=== PATIENT | female | born 1945 | race Hispanic/Latino ===

== ENCOUNTER 2021-02-07 05:53 | Observation (INO) | payer OTHER ==
[2021-02-01 13:16] LABS: BASOPHILS % (AUTO) 0.4 % (0.0-5.0); EOSINOPHILS % (AUTO) 2.4 % (0.0-8.0); HEMATOCRIT 44.5 % (36-48); LYMPHOCYTES % (AUTO) 26.9 % (21.0-51.0); MEAN CORPUSCULAR HEMOGLOBIN 28.5 pg (27.0-33.0); MEAN CORPUSCULAR HGB CONC 31.5 g/dL (32.0-36.0); MEAN CORPUSCULAR VOLUME 90.6 fL (79-99); MONOCYTES % (AUTO) 7.8 % (3.0-13.0); NEUTROPHILS % (AUTO) 62.1 % (40.0-77.0); PLATELET COUNT (AUTO) 190 K/uL (130-400); RED BLOOD CELL COUNT(AUTO) 4.91 MIL/uL (4.00-5.50); RED CELL DISTRIBUTION WIDTH 14.3 % (11.0-15.5); WHITE BLOOD COUNT (AUTO) 5.4 K/uL (4.8-10.8)
[2021-02-01 13:25] LABS: CREATININE 0.8 mg/dL (0.5-1.5); POTASSIUM 3.8 mmol/L (3.5-5.1)
[2021-02-01 13:27] LABS: INR 1.01 (0.85-1.15)
[2021-02-06 10:29] VITALS: BP 151/65
[~2021-02-07] VITALS: Ht 157.5 cm; Wt 86.5 kg
[2021-02-07] VITALS (25 sets, daily range): BP systolic 95–167; BP diastolic 47–92
[~2021-02-07 05:53] MED LIST: GABA300C PO; LEVO75TA10 PO; LISI1TAB32 PO
[2021-02-07] MEDS ORDERED: TRANEXAMIC ACID 1000MG/10ML ONE ×3 (06:49)
[2021-02-07] MEDS ORDERED: CLINDAMYCIN IVPB 600MG/50ML 50 ML IV ONE (07:00)
[2021-02-07] MEDS ORDERED: LIDOCAINE PF 100MG/5ML (2%) SYRINGE 5ML ONE ×2 (07:16→08:18)
[2021-02-07] MEDS ORDERED: SUCCINYLCHOLINE CHLORIDE 20 MG/ML 10 ML VIAL ONE ×2 (07:16→08:18)
[2021-02-07] MEDS ORDERED: ROCURONIUM 10MG/1ML SYR 10 MG/ML ML ONE (07:17)
[2021-02-07] MEDS ORDERED: NEOSTIGMINE 5MG/5ML SYR IV ONE (07:17)
[2021-02-07] MEDS ORDERED: GLYCOPYRROLATE 1 MG/5 ML SYRINGE ONE (07:17)
[2021-02-07] MEDS ORDERED: ONDANSETRON 4MG INJ ONE (07:17)
[2021-02-07] MEDS ORDERED: MIDAZOLAM HCL 1 MG/ML 2ML VIAL ONE (07:17)
[2021-02-07] MEDS ORDERED: FENTANYL CITRATE PF 50 MCG/1 ML 2ML VIAL ONE ×2 (07:17→09:01)
[2021-02-07] MEDS ORDERED: DEXAMETHASONE SOD PHOSPHATE 10MG/ML 1ML VIAL ONE (07:17)
[2021-02-07] MEDS ORDERED: PROPOFOL 10 MG/ML 20ML VIAL IV ONE (07:17)
[2021-02-07] MEDS: CLINDAMYCIN IVPB 600MG/50ML 50 ML IV SCH ×2 (07:30→07:54)
[2021-02-07] MEDS: LACTATED RINGERS 1000ML 1,000 ML IV SCH ×6 (07:31→14:39)
[2021-02-07] MEDS ORDERED: ROPIVACAINE 0.5% 5MG/ML 30ML IJ ONE (07:47)
[2021-02-07] MEDS ORDERED: METOPROLOL TARTRATE 1 MG/ML 5ML VIAL IV ONE (08:19)
[2021-02-07] MEDS ORDERED: TRANEXAMIC ACID 1000MG/10ML TP ONE ×3 (08:24)
[2021-02-07] MEDS ORDERED: LABETALOL 20MG VIAL IV ONE (08:37)
[2021-02-07] MEDS: ACETAMINOPHEN 500 MG TABLET PO SCH ×2 (09:30→17:30)
[2021-02-07] MEDS ORDERED: MORPHINE 4 MG SYG IVP PRN (09:30)
[2021-02-07] MEDS ORDERED: ONDANSETRON 4MG INJ IVP PRN (09:30)
[2021-02-07] MEDS ORDERED: HYDROCODONE/ACETAMINOPHEN 5/325 MG TAB PO PRN (09:30)
[2021-02-07] MEDS ORDERED: OXYCODONE HCL 5 MG TAB PO PRN (09:30)
[2021-02-07] MEDS: LEVOTHYROXINE 75 MCG TABLET PO SCH (09:41)
[2021-02-07] MEDS: LISINOPRIL 10 MG TABLET PO SCH (09:41)
[2021-02-07] MEDS: HYDROCHLOROTHIAZIDE 25 MG TABLET PO SCH (09:45)
[2021-02-07] MEDS: 0.9%NACL 1000ML 1,000 ML IV SCH ×2 (10:47→21:19)
[2021-02-07] MEDS: TRAMADOL HCL 50 MG TABLET PO SCH ×3 (12:00→23:12)
[2021-02-07] MEDS: CLINDAMYCIN IVPB 900MG/50ML 50 ML IVPB SCH ×2 (15:13→22:24)
[2021-02-07] MEDS ORDERED: GABAPENTIN 300 MG CAPSULE PO SCH (21:00)
[2021-02-07] MEDS: CELECOXIB 200 MG CAP PO SCH (21:18)
[2021-02-07] MEDS: FAMOTIDINE 20MG TAB PO SCH (21:18)
[2021-02-08] MEDS: ACETAMINOPHEN 500 MG TABLET PO SCH ×3 (01:30→17:39)
[2021-02-08 03:42] VITALS: BP 101/42
[2021-02-08 04:31] LABS: HEMATOCRIT 32.2 % (36-48); MEAN CORPUSCULAR HEMOGLOBIN 28.8 pg (27.0-33.0); MEAN CORPUSCULAR VOLUME 89.9 fL (79-99); RED BLOOD CELL COUNT(AUTO) 3.58 MIL/uL (4.00-5.50); RED CELL DISTRIBUTION WIDTH 14.5 % (11.0-15.5); WHITE BLOOD COUNT (AUTO) 7.1 K/uL (4.8-10.8)
[2021-02-08 04:48] LABS: POTASSIUM 3.3 mmol/L (3.5-5.1)
[2021-02-08] MEDS: 0.9%NACL 1000ML 1,000 ML IV SCH ×2 (05:30→08:48)
[2021-02-08] MEDS: LEVOTHYROXINE 75 MCG TABLET PO SCH (06:17)
[2021-02-08] MEDS: TRAMADOL HCL 50 MG TABLET PO SCH ×2 (06:17→13:21)
[2021-02-08 08:00] VITALS: BP 100/40
[2021-02-08] MEDS ORDERED: ROPIVICAINE 250MG+KETOROLAC 15MG+EPINEPHRINE 0.3+CLONIDINE 80 IV PRN ×5 (08:00)
[2021-02-08] MEDS: CELECOXIB 200 MG CAP PO SCH (08:45)
[2021-02-08] MEDS: FAMOTIDINE 20MG TAB PO SCH (08:45)
[2021-02-08] MEDS: HYDROCHLOROTHIAZIDE 25 MG TABLET PO SCH (09:00)
[2021-02-08] MEDS: LISINOPRIL 10 MG TABLET PO SCH (09:00)
[2021-02-08] MEDS ORDERED: POLYETHYLENE GLYCOL 3350 17 GM POWD.PACK PO SCH (09:00)
[2021-02-08 12:00] VITALS: BP 92/42
[2021-02-08 16:00] VITALS: BP 140/54
[2021-02-08] MEDS ORDERED: ENOXAPARIN SODIUM 30 MG/0.3 ML SQ SCH (16:00)
[2021-02-10] MEDS ORDERED: BISACODYL 10 MG SUPP.RECT RC PRN (09:30)
== END 2021-02-08 19:00 | disposition home health service (06) ==
LOC: DAH 05:53 → DAHIP 05:54 → DAH 05:54 → 4AH 09:49
PROVIDERS: ADMIT Orthopaedic Surgery; ATTEND Orthopaedic Surgery
DX: M17.11 Unilateral primary osteoarthritis, right knee (principal); Z20.822 Contact with and (suspected) exposure to COVID-19; I10 Essential (primary) hypertension; E03.9 Hypothyroidism, unspecified; Z79.01 Long term (current) use of anticoagulants
CPT/HCPCS: 27447; 36415 ×2; 73560; 80048 ×2; 85025; 85027; 85610; 85730; 87635; 87641; 88305; 88311; 93005; 96361 ×2; 96365; 96366; 96372; 97039 ×3; 97116 ×3; 97161; 97530 ×2; A4215; A4216; A4221; A4222; A4223 ×2; A4649 ×7; A4663; A6260; A9272; C1776; C9803; G0378 ×31; G8978; G8979; G8980; G8981; G8982; G8983; J0330 ×2; J1100; J1650; J2001 ×2; J2250; J2405; J2704; J2710; J2795; J3010 ×2; J3490 ×13; J7030; J7120

== ENCOUNTER → 2023-02-26 | Outpatient (CLI) | payer OTHER ==
[~2023-02-26] MED LIST changes: -LISI1TAB32 PO; +LISI1TAB49 PO
[2023-02-26 12:47] LABS: BASOPHILS % (AUTO) 0.6 % (0.0-5.0); EOSINOPHILS % (AUTO) 4.5 % (0.0-8.0); HEMATOCRIT 42.6 % (36-48); LYMPHOCYTES % (AUTO) 41.4 % (21.0-51.0); MEAN CORPUSCULAR HEMOGLOBIN 28.4 pg (27.0-33.0); MEAN CORPUSCULAR HGB CONC 31.7 g/dL (32.0-36.0); MEAN CORPUSCULAR VOLUME 89.5 fL (79-99); MONOCYTES % (AUTO) 8.1 % (3.0-13.0); NEUTROPHILS % (AUTO) 45.2 % (40.0-77.0); PLATELET COUNT (AUTO) 202 K/uL (130-400); RED BLOOD CELL COUNT(AUTO) 4.76 MIL/uL (4.00-5.50); RED CELL DISTRIBUTION WIDTH 14.1 % (11.0-15.5); WHITE BLOOD COUNT (AUTO) 4.7 K/uL (4.8-10.8)
[2023-02-26 12:58] LABS: CREATININE 1.1 mg/dL (0.5-1.5); POTASSIUM 4.1 mmol/L (3.5-5.1)
== END | disposition home or self-care (01) ==
LOC: LAB 10:31
PROVIDERS: ATTEND Internal Medicine Cardiovascular Disease
DX: I50.31 Acute diastolic (congestive) heart failure (principal)
CPT/HCPCS: 36415; 80048; 83880; 85025

== ENCOUNTER 2023-05-02 16:16 | Emergency (ER) | payer OTHER ==
[~2023-05-02] VITALS: Ht 160 cm; Wt 85.7 kg
[2023-05-02 17:29] LABS: ADD UA MICROSCOPIC YES; APPEARANCE,URINE TURBID (CLEAR); BILIRUBIN,URINE NEGATIVE (NEGATIVE); COLOR,URINE RED (YELLOW); GLUCOSE, URINE (UA) NEGATIVE (NEGATIVE); KETONES,URINE NEGATIVE (NEGATIVE); LEUKOCYTE ESTERASE ,URINE 500 Leu/uL (NEGATIVE); NITRATE,URINE NEGATIVE (NEGATIVE); OCCULT BLOOD,URINE LARGE (NEGATIVE); PROTEIN,URINE 100 mg/dL (NEGATIVE); UROBILINOGEN,URINE 0.2 mg/dL (0.2-1.0)
[2023-05-02 17:36] VITALS: BP 153/50; PULSE 78; RESP 18; O2SAT 98
[2023-05-02 17:52] LABS: BACTERIA,URINE FEW /HPF (None Seen); MUCUS,URINE RARE LPF (None Seen); NON-SQUAMOUS EPITHELIAL CELL 3 /HPF (0-2); OTHER CASTS, URINE 87 /LPF (None Seen); RBC,URINE TNTC /HPF (0-1); UNCLASSIFIED CRYSTAL 38 /HPF (None Seen); WBC CLUMP FEW /HPF (0-1); WBC,URINE 26-50 /HPF (0-1)
[2023-05-02] MEDS ORDERED: MACR100 PO (18:30)
[2023-05-02] MEDS ORDERED: PHENAZOPYRIDINE HCL 200 MG TABLET PO ONE (18:30)
[2023-05-02] MEDS ORDERED: NITROFURANTOIN MONOHYD/M-CRYST 100 MG CAPSULE PO ONE (18:30)
[2023-05-02] MEDS ORDERED: PHEN-847 PO (18:30)
== END 2023-05-02 19:14 | disposition home or self-care (01) ==
LOC: EDH 16:16
DX: N30.91 Cystitis, unspecified with hematuria (principal); I10 Essential (primary) hypertension; Z79.890 Hormone replacement therapy; Z79.899 Other long term (current) drug therapy; Z88.0 Allergy status to penicillin; Z90.49 Acquired absence of other specified parts of digestive tract
CPT/HCPCS: 81001; 87077; 87088; 87186

== ENCOUNTER → 2023-08-22 | Outpatient (CLI) | payer OTHER ==
[~2023-08-22] MED LIST changes: +MACR100 PO; +PHEN-847 PO
== END | disposition home or self-care (01) ==
LOC: SHCH 07:34
PROVIDERS: ATTEND Internal Medicine Cardiovascular Disease
DX: I31.39 Other pericardial effusion (noninflammatory) (principal); I11.9 Hypertensive heart disease without heart failure
CPT/HCPCS: 93306

== ENCOUNTER → 2023-11-26 | Outpatient (CLI) | payer OTHER ==
[2023-11-26] MEDS: REGADENOSON 0.4 MG/5 ML PF SYG IVP ONE (15:00)
== END | disposition home or self-care (01) ==
LOC: SHCH 07:41
PROVIDERS: ATTEND Internal Medicine Cardiovascular Disease
DX: R93.1 Abnormal findings on diagnostic imaging of heart and coronary circulation (principal); R06.00 Dyspnea, unspecified
CPT/HCPCS: 78452; 93017; J2785; A9500 ×2; 96374

== ENCOUNTER → 2024-01-06 | Outpatient (CLI) | payer OTHER ==
[2024-01-06 16:40] LABS: T4 (THYROXINE) 7.8 ug/dL (4.7-13.3); THYROID STIMULATING HORMONE 3.94 uIU/mL (0.36-3.74)
== END | disposition home or self-care (01) ==
LOC: LAB 11:35
PROVIDERS: ATTEND Internal Medicine Cardiovascular Disease
DX: R00.1 Bradycardia, unspecified (principal)
CPT/HCPCS: 36415; 84436; 84443

== ENCOUNTER → 2024-02-07 | Outpatient (CLI) | payer OTHER ==
[2024-02-07 12:53] LABS: THYROID STIMULATING HORMONE 1.2 uIU/mL (0.36-3.74)
== END | disposition home or self-care (01) ==
LOC: LAB 11:04
PROVIDERS: ATTEND Internal Medicine Cardiovascular Disease
DX: E03.9 Hypothyroidism, unspecified (principal)
CPT/HCPCS: 36415; 84439; 84443